=== PATIENT | female | born 2000 | race Caucasian/White ===

== ENCOUNTER 2020-12-10 12:28 | Inpatient (IN) | payer OTHER ==
[2020-12-10 14:02] LABS: HCT 34.5 % (37.0-47.0); HGB 11.8 g/dl (12.5-16.0); MCH 29.6 pg (25.0-31.0); MCHC 34.2 g/dL (32.0-36.0); MCV 86.5 fL (78.0-100.0); MPV 10.7 fL (6.0-9.5); RBC 3.99 M/uL (4.20-5.40); RDW 15.1 % (11.5-14.0); WBC 12.7 K/uL (4.0-10.5)
[2020-12-12 06:16] LABS: HCT 25.2 % (37.0-47.0); HGB 8.6 g/dl (12.5-16.0); MCH 29.9 pg (25.0-31.0); MCHC 34.1 g/dL (32.0-36.0); MCV 87.5 fL (78.0-100.0); MPV 10.5 fL (6.0-9.5); RBC 2.88 M/uL (4.20-5.40); RDW 15.1 % (11.5-14.0); WBC 12.8 K/uL (4.0-10.5)
== END 2020-12-13 19:25 | disposition home or self-care (01) | DRG 806 ==
LOC: FOB 12:28
PROVIDERS: ADMIT Obstetrics & Gynecology
PROC: 10E0XZZ Delivery of Products of Conception, External Approach (ICD-10-PCS; principal; 2020-12-11)
PROC: 0KQM0ZZ Repair Perineum Muscle, Open Approach (ICD-10-PCS; 2020-12-11)
DX: O99.02 Anemia complicating childbirth (principal); D62 Acute posthemorrhagic anemia; Z37.0 Single live birth; O98.32 Other infections with a predominantly sexual mode of transmission complicating childbirth; Z3A.37 37 weeks gestation of pregnancy; A60.00 Herpesviral infection of urogenital system, unspecified; Z20.822 Contact with and (suspected) exposure to COVID-19; O70.1 Second degree perineal laceration during delivery
CPT/HCPCS: 36415; 86850; 86900; 86901; J2916; J7120; U0002